=== PATIENT | female | born 1985 | race Caucasian/White ===

== ENCOUNTER 2020-02-08 05:41 | Outpatient (CLI) | payer OTHER, SELFPAY ==
--- NOTE | 2020-03-05 19:40 | WPDHOMESLEEP ---
Sleep Study - Home Date of Study: 02/09/20 Ordering Provider: Reyna Gillespie MD Interpreting Physician: Ro Wills MD Home Sleep Study Type: Apnea Link Air Height: 1.65 m Weight: 94.347 kg Body Mass Index: 34.6 Otoe: 8 Reason for Sleep Study Difficulty falling asleep and staying asleep, excessive daytime sleepiness. Sleep History Kizzy Galdamez is a 34 year old female who has trouble falling asleep and staying asleep during the night, and this leads to excessive daytime sleepiness. She describes herself as a light sleeper, and wakes at least once each night. At times, she has anxiety at night while trying to return to sleep. she frequently snores but it is never loud enough that others complain about it. there is a family history with both parents having sleep apnea. She occasionally has trouble sleep with a cold. She rarely wakes up gasping for breath at night. She never sweats excessively at night, rarely notices her heart pounding or beating irregularly at night. She occasionally falls asleep during the day, never involuntarily or while driving. She does not fall asleep during physical effort. She does not have loss of muscle tone with strong emotion. She rarely has daytime difficulties due to excessive sleepiness, rarely feels paralyzed on waking or falling asleep. She never has vivid dreamlike scenes upon awakening or falling asleep. On occasion, she feels afraid to go to sleep. She never has nightmares, and occasionally remembers her dreams. She constantly has racing thoughts, occasionally feels sad or depressed, constantly feels anxious. She occasion she has muscular tension and occasionally notices parts of her body jerking. She does not ever kick at night. She rarely has crawling and aching feelings in her legs and rarely has leg pain during the night. She does not have morning jaw pain and never grinds her teeth during sleep. She is not bothered by pain during the day. She is not awakened by pain at night. She rarely wakes up feeling stiff in the morning with sore or achy muscles, rarely wakes up with pain in the neck and spine. She has fatigue, palpitations, memory problems, and feels panic very often. Normal bedtime is midnight, taking 45 minutes or an hour to fall asleep, typically waking 1 or 2 times at night, sometimes staying awake for hours. While awake at night, she may read. She wakes the morning at 8:00 a.m.. She estimates 7 hours of sleep at night. She does not take naps. A short nap is not refreshing. She is drowsy in the morning for an hour or longer. She feels better in the afternoon compared to the morning. Habits: Never smoked tobacco. Caffeine 3 servings a day. No alcohol or recreational drugs PMFSH Past Medical History Medical History (Updated 03/05/20 @ 20:59 by Ro Wills MD) Anxiety Asthma Eczema Environmental allergies Hypothyroidism Family History Family History Mother Obstructive sleep apnea Father Obstructive sleep apnea Social History Social History (Updated 03/05/20 @ 20:34 by Ro Wills MD) Social History: with 3 children. Smoking status: Never smoker Alcohol intake: never Substance use: never Living arrangements: with family Medications Medications: Synthroid 112 mcg a day Junel 1 mcg a day, oral contraceptive escitalopram 10 mg a day Vitamin D3 50 mcg a day loratadine 10 mg a day Sleep Procedure This test was performed using 4 channel monitoring including respiratory effort channel snoring channel heart rate channel and oxygen saturation channel. This study was scored using CMS guidelines. Sleep Architecture Not applicable for home sleep test. Respiratory Analysis The apnea-hypopnea index is 1.1, normal. There were 8 apneas total, 3 apneas were obstructive, 38%, and 5 apneas were central, 62% of the total. She had 1 hypopnea. She had significant flow l
[2020-03-05 21:19] VITALS: BMI 34.6
== END 2020-02-08 05:42 ==
LOC: ANHCSM 03-13 05:42
PROVIDERS: PCP Internal Medicine; Visit Provider Internal Medicine Endocrinology, Diabetes & Metabolism
DX: G47.10 Hypersomnia, unspecified (principal); E03.9 Hypothyroidism, unspecified
CPT/HCPCS: 95806

== ENCOUNTER 2021-04-29 09:09 | Outpatient (CLI) | payer OTHER, SELFPAY ==
[2021-04-29 10:09] LABS: Alanine Aminotransferase 13 U/L (4-35); Albumin Level 4.4 g/dL (3.5-5.1); Alkaline Phosphatase 71 U/L (38-126); Anion Gap 11 mmol/L (8-16); Aspartate Amino Transferase 20 U/L (14-36); Bilirubin,Total 0.5 mg/dL (0.2-1.3); Blood Urea Nitrogen 13 mg/dL (7-17); Carbon Dioxide 22 mmol/L (22-30); Chloride 105 mmol/L (98-107); Estimated Glomerular Filt Rate > 60; Glucose 93 mg/dL (65-110); Sodium 138 mmol/L (137-145)
[2021-04-29 11:13] LABS: Iron 45 ug/dL (37-170)
[2021-04-29 11:22] LABS: Percent Iron Saturation 15 % (20-50)
[2021-04-29 11:24] LABS: Free T4 Free Thyroxine 1.48 ng/mL (0.78-2.19)
[2021-05-01 12:07] LABS: DHEA-Sulfate 327 mcg/dL (23-266)
[2021-05-02 06:59] LABS: FSH 9.9 mIU/mL (***); LH 17.1 mIU/mL (***); Progesterone 0.5 ng/mL (***); Prolactin 13.1 ng/mL (***); Triiodothyronine T3 Free 2.9 pg/mL (2.3-4.2)
[2021-05-04 13:03] LABS: Testosterone Free 5.6 pg/mL (0.1-6.4); Testosterone Total 28 ng/dL (2-45)
== END 2021-04-29 09:10 | disposition home or self-care (01) ==
LOC: ANHLAB 09:12
PROVIDERS: PCP Internal Medicine; Visit Provider Internal Medicine Endocrinology, Diabetes & Metabolism
DX: E03.9 Hypothyroidism, unspecified (principal); L65.9 Nonscarring hair loss, unspecified; N92.6 Irregular menstruation, unspecified
CPT/HCPCS: 36415; 80053; 82627; 83001; 83002; 83540; 83550; 84144; 84146; 84402; 84403; 84439; 84443; 84481; 85025

== ENCOUNTER 2022-12-29 09:16 | Outpatient (CLI) | payer OTHER, SELFPAY ==
[2022-12-29 19:07] LABS: Basophils Absolute Auto 0.1 K/mm3 (0.0-0.1); Basophils Percent Auto 0.6 % (0.2-1.2); Eosinophils Absolute Auto 0.2 K/mm3 (0-0.3); Eosinophils Percent Auto 1.9 % (0-4.4); Hematocrit 37.6 % (37.0-47.0); Hemoglobin 12.1 g/dL (12.0-15.0); Immature Granulocyte Absolute 0.02 K/mm3 (0.00-0.031); Immature Granulocyte Percent A 0.2 % (0-0.5); Lymphocytes Absolute Auto 2.29 K/mm3 (0.9-3.2); Mean Corpuscular HGB Conc 32.2 g/dl (32-36); Mean Corpuscular Hemoglobin 28.6 pg (26-34); Mean Corpuscular Volume 88.9 fl (80-100); Mean Platelet Volume 11.8 fl (7.4-10.4); Monocytes Absolute Auto 0.6 K/mm3 (0.1-0.6); Monocytes Percent Auto 6.8 % (2.6-8.5); Neutrophils Absolute Auto 5.4 K/mm3 (1.3-6.7); Neutrophils Percent Auto 63.5 % (45.5-73.1); Platelet Count Result 325 k/mm3 (150-375); Red Blood Count 4.23 M/mm3 (4.2-5.4); Red Cell Distribution Width 13.2 % (11.5-14.5); White Blood Count 8.5 K/mm3 (4.5-10.0)
[2022-12-29 19:21] LABS: Alanine Aminotransferase 16 U/L (6-35); Albumin Level 4.5 g/dL (3.5-5.1); Alkaline Phosphatase 59 U/L (38-126); Anion Gap 9 mmol/L (8-16); Aspartate Amino Transferase 21 U/L (14-36); Bilirubin,Total 0.4 mg/dL (0.2-1.3); Blood Urea Nitrogen 10 mg/dL (7-17); Calcium 8.5 mg/dL (8.4-10.2); Carbon Dioxide 28 mmol/L (22-30); Chloride 101 mmol/L (98-107); Cholesterol 144 mg/dL (0-200); Estimated Glomerular Filt Rate > 60; Glucose 88 mg/dL (65-110); HDL Direct 35 mg/dL; Potassium 4.1 mmol/L (3.4-5.0); Sodium 138 mmol/L (137-145); Triglycerides 82 mg/dL (<150)
[2022-12-29 19:33] LABS: LDL Cholesterol Direct 91 mg/dL
[2022-12-29 20:06] LABS: Vitamin D 25 Hydroxy 34.8 ng/mL
[2022-12-29 20:24] LABS: Hemoglobin A1C 4.7 % (<5.7)
[2023-01-01 04:51] LABS: Thyroid Peroxidase Antibodies 192 IU/mL (<9)
[2023-01-02 14:08] LABS: Testosterone Free 3.6 pg/mL (0.1-6.4); Testosterone Total 30 ng/dL (2-45)
== END 2022-12-29 09:17 | disposition home or self-care (01) ==
LOC: ANHGOSHLAB 09:19
PROVIDERS: PCP Clinical Nurse Specialist; Visit Provider Clinical Nurse Specialist
DX: Z13.228 Encounter for screening for other metabolic disorders (principal); Z13.220 Encounter for screening for lipoid disorders; R73.09 Other abnormal glucose; R79.89 Other specified abnormal findings of blood chemistry; E03.9 Hypothyroidism, unspecified; E55.9 Vitamin D deficiency, unspecified
CPT/HCPCS: 36415; 80053; 80061; 82306; 83036; 84402; 84403; 84443; 85025; 86376

== ENCOUNTER 2022-12-30 10:00 | Outpatient (CLI) | payer OTHER, SELFPAY ==
--- NOTE | ~2022-12-30 | US_ITS ---
US thyroid 12/30/2022 10:46 Indication: Thyroid nodule Procedure: High-resolution ultrasound of the thyroid gland Comparison: No prior studies for comparison. Findings: Right thyroid lobe measures 5.5 x 1.6 x 2.2 cm and contains a 4 mm cyst. Left lobe measures 4.8 x 1.3 cm and contains a solid oval hyperechoic wider than tall smoothly marginated mass without echogenic foci, measuring 12 x 8 x 7 mm, TR 3. There is normal vascularity. Impression: 1: Bilateral thyroid masses, largest in the left lobe measuring 12 mm, TR 3, likely benign. This does not meet sonographic criteria for biopsy or follow-up. Reviewed, dictated and finalized at location L. Impression: 1: Bilateral thyroid masses, largest in the left lobe measuring 12 mm, TR 3, yousuf hernandez benign. This does not meet sonographic criteria for biopsy or follow-up.
== END 2022-12-30 10:01 ==
LOC: GOSHIMG 10:01
PROVIDERS: PCP Clinical Nurse Specialist; Visit Provider Clinical Nurse Specialist
DX: E03.9 Hypothyroidism, unspecified (principal); E07.9 Disorder of thyroid, unspecified
CPT/HCPCS: 76536

== ENCOUNTER 2023-01-05 15:10 | Outpatient (NON) | payer OTHER, SELFPAY ==
[2023-01-05 19:01] LABS: Appearance Urine Clear (Clear); Bacteria Urine 1+ /hpf; Bilirubin Urine Negative (Negative); Blood Urine 1+ (Negative); Color Urine Yellow (Yellow); Glucose Urine UA Negative (Negative); Ketones Urine Negative (Negative); Leukocyte Esterase Ur 2+ LEU/UL (Negative); Nitrate Urine Negative (Negative); Non Pathogenic Casts 0-2; Protein Urine Negative (Negative); Specific Grav Ur 1.006 (1.001-1.035); Squamous Epithelial Cell Urine Occasional /hpf (Few); Urobilinogen Urine 0.2 mg/dL (<2.0)
[2023-01-05 19:02] LABS: Add Urine Microscopic? YES
== END 2023-01-05 15:11 | disposition home or self-care (01) ==
LOC: ANHGOSHLAB 15:11
PROVIDERS: PCP Internal Medicine; Visit Provider Clinical Nurse Specialist
DX: R39.9 Unspecified symptoms and signs involving the genitourinary system (principal); R30.0 Dysuria
CPT/HCPCS: 81001; 87077; 87086; 87186